=== PATIENT | female | born 1960 | race African-American/Black ===

== ENCOUNTER 2016-10-15 10:53 | Emergency (ER) ==
[2016-10-15 11:04] VITALS: BP 118/88; TEMP 98.5; BMI 40.7
--- NOTE | 2016-10-15 12:27 | ED.PDOC ---
General ED Provider: Dr. YASMINE DOWNEY JR Chief Complaint: Hand Pain/Injury Stated Complaint: states left hand was hurting in june 2016 and was seen in the er. states it improved. patient states she started having pain in left hand and then right hand started hurting also. states both thumb nails are starting to come off. at times knuckles will swell.patient denies any injury, states it just started hurting. bilat. thumb nails are discolored and patient states they are coming off.[End]98.5 72 16 99% 118/88 07/16. . : FELL AND WENT DOWN ONTO LEFT HAND--PAIN TO LEFT THUMB SINCE FALL--SL SWOLLEN WITH PAIN TO ENTIRE THUMB AND RADIATES INTO BASE OF WRIST[. Tenderness : Snuff box, Carpal, Metacarpal, Phalanx (states lower lid htperpigme) Pancreatitis (at 22 years old -told it was due to drinking- no problems since) Alcohol Screening: None (admits to 2 beers and one to two shots of crown a day) : Hand Sprain (ED) limit use of left hand for five daysace wrap for three daysice 20 minutes three times a dayNaprosyn for painrecheck PMD [facility] 500 mg PO Q12HR PRN #30. pain each thumb and left third finger about proximal nail folds and DIP joints Time Seen by Physician: 12:26 Mode of Arrival: Walk-In Information Source: Patient Exam Limitations: No limitations Nursing and Triage Documentation Reviewed and Agree: No Review of Systems - Review Of Systems Constitutional: Reports: No symptoms Eyes: Reports: No symptoms Ears, Nose, Mouth, Throat: Reports: No symptoms Respiratory: Reports: No symptoms Cardiac: Reports: No symptoms GI: Reports: No symptoms : Reports: No symptoms Musculoskeletal: Reports: Other (note fall and does recall striking dorsum of left thumb but both thumbnails with duplication of nail consistent with trauma) Skin: Reports: Lesions Neurological: Reports: No symptoms Endocrine: Reports: No symptoms Hematologic/Lymphatic: Reports: No symptoms All Other Systems: Other Past Medical History - Past Medical History Previously Healthy: Yes Endocrine: Reports: None Cardiovascular: Reports: None Respiratory: Reports: None Hematological: Reports: None Gastrointestinal: Reports: None, Pancreatitis (at 22 years old -told it was due to drinking- no problems since) Genitourinary: Reports: None Neuro/Psych: Reports: None Musculoskeletal: Reports: Joint Pain Cancer: Reports: None Last Menstrual Period: no longer having "it's been years" - Surgical History General Surgical History: Reports: , Unknown - Family History Family History: Reports: Unknown - Social History Smoking Status: Never smoker Hx Substance Use: No Alcohol Screening: None Physical Exam - Physical Exam Appearance: Well-appearing Pain Distress: Moderate Eyes: KRISTY (note hyperpigmentation below eyes) Skin: Warm, Dry, Normal color (note nail changes and tenderness of nailbes and first pip,positive history of trauma to left thumb then to left thumbnail) Neurological: Sensation intact, Motor intact, Reflexes intact, Cranial nerves intact, Alert, Oriented Psychiatric: Affect appropriate, Mood appropriate Critical Care Note - Critical Care Note Total Time (mins): 0 Course - Course Vital Signs: Temp Pulse Resp BP Pulse Ox 10/15/16 10:54 98.5 F 72 16 118/88 99 Departure - Departure Time of Disposition: 12:37 Disposition: HOME SELF-CARE Discharge Problem: Onycholysis, Arthritis Instructions: Nail Avulsion (ED) Condition: Good Pt referred to PMD for follow-up: Yes Additional Instructions: follow up with clinic discuss Rheumatology evaluation for psoriasis lupus or other skin disease affecting nails Naprosyn for pain need specialized blood tests recommend follow up with clinic Prescriptions: Naproxen [Naprosyn] 500 mg PO Q12HR PRN #30 tablet PRN Reason: PAIN Allergies/Adverse Reactions: Allergies No Known Allergies Allergy (Verified 10/15/16 10:58) Home Medications: Ambulatory Orders Naproxen [Naprosyn] 500 mg PO Q12HR PRN #30 tablet 10/15/16
== END 2016-10-15 12:48 | disposition home or self-care (01) ==
LOC: ED 10:53
DX: M19.90 Unspecified osteoarthritis, unspecified site (principal); L60.1 Onycholysis
CPT/HCPCS: 99282

== ENCOUNTER 2016-10-18 16:01 | Outpatient (CLI) ==
[2016-10-18 17:02] LABS: BASOPHILS # (AUTO) 0.1 K/uL (0-0.2); BASOPHILS % (AUTO) 0.5 % (0.0-3.0); EOSINOPHILS # (AUTO) 0.4 K/ul (0.0-0.7); HEMATOCRIT 43.4 % (37.0-47.0); HEMOGLOBIN 14.3 g/dl (12.0-16.0); IMMATURE GRANULOCYTE % (AUTO) 0.3 % (0.0-5.0); LYMPHOCYTES # (AUTO) 1.8 K/uL (0.60-3.4); LYMPHOCYTES % (AUTO) 17.9 (10.0-50.0); MEAN CORPUSCULAR HEMOGLOBIN 25.9 pg (27.0-31.0); MEAN CORPUSCULAR HGB CONC 32.9 (31.8-35.4); MEAN CORPUSCULAR VOLUME 78.6 fl (81.0-99.0); MONOCYTES # (AUTO) 0.6 K/uL (0.4-2.0); MONOCYTES % (AUTO) 6.4 (0-10); NEUTROPHILS # (AUTO) 6.9 K/ul (2.0-6.9); NEUTROPHILS % (AUTO) 70.9; PLATELET COUNT 298 10^3/uL (140-440); RED BLOOD COUNT 5.52 10^6/ul (4.20-5.40); WHITE BLOOD COUNT 9.78 K/ul (4.6-10.2)
[2016-10-18 17:31] LABS: ALBUMIN 3.7 g/dL (3.4-5.0); ALBUMIN/GLOBULIN RATIO 0.86; ANION GAP 11.1; BILIRUBIN,TOTAL 0.62 mg/dL (0.00-1.20); BUN/CREATININE RATIO 12.03; CALCIUM 9.4 mg/dL (8.2-10.2); CREATININE 1.33 mg/dL (0.60-1.30); POTASSIUM 4.1 mmol/L (3.5-5.10)
== END 2016-10-18 16:02 | disposition home or self-care (01) ==
LOC: LAB 16:01
PROVIDERS: ATTEND Nurse Practitioner Family
DX: L60.3 Nail dystrophy (principal)
CPT/HCPCS: 36415; 80053; 84439; 84443; 85025

== ENCOUNTER 2016-11-23 11:44 | Emergency (ER) ==
[2016-11-23 11:53] VITALS: BP 134/77; TEMP 101.8; BMI 41.8
--- NOTE | 2016-11-23 12:17 | ED.PDOC ---
General ED Provider: Dr. SESAR GODINEZ-ER Chief Complaint: Respiratory Complaint Stated Complaint: my sinuses are draining green--its going down my throat and im coughing it up Time Seen by Physician: 11:55 Mode of Arrival: Walk-In Information Source: Patient Exam Limitations: No limitations Primary Care Provider: EVA SALCEDO Nursing and Triage Documentation Reviewed and Agree: Yes Respiratory Complaint Exam - Respiratory Complaint/Exam Onset/Duration: 2 dasy Symptoms Are: Still present Timing: Constant Initial Severity: Mild Current Severity: Mild Location: Nose Character: Reports: Productive cough Aggravating: Reports: URI Alleviating: Reports: None Associated Signs and Symptoms: Reports: URI, Nasal congestion, Sinus discomfort , Sore throat. Denies: Rapid breathing, Dyspnea, Fever, Chills, Chest pain, Pleuritic chest pain, Wheezing, Hemoptysis, Dizziness, Calf pain, Calf swelling , Edema, Hoarseness, Vomiting, Weight loss, Decreased oral intake, Increased thirst, Increased appetite, Increased urination Related History: Reports: Similar episode History of Healthcare-Acquired Pneumonia: No Related Surgical History: Reports: None Pulmonary Embolism Risk Factors: None Cardiac Risk Factors: Reports: None Pseudomonas Risk Factors: Reports: None Tuberculosis Risk Factors: Reports: None Status Asthmaticus Risk Factors: Reports: None Home Oxygen Use: No Recent Stress Test: No Recent Echo/LV Function: No Current Antibiotic Use: No Current Asthma Medication Use: No Respiratory Distress: None Inadequate Respiratory Effort: No Dysphagia Present: No Stridor Present: No JVD Present: No Accessory Muscle Use: No Retractions: Not Present Diminished Breath Sounds: No Sinus Tenderness: Maxillary Grunting Respirations: No Kussmaul Respirations: No Differential Diagnoses: Sinusitis Review of Systems - Review Of Systems Constitutional: Reports: Fever Eyes: Reports: No symptoms Ears, Nose, Mouth, Throat: Reports: Nose discharge Respiratory: Reports: No symptoms Cardiac: Reports: No symptoms GI: Reports: No symptoms : Reports: No symptoms Musculoskeletal: Reports: No symptoms Skin: Reports: No symptoms Neurological: Reports: No symptoms Endocrine: Reports: No symptoms Hematologic/Lymphatic: Reports: No symptoms All Other Systems: Reviewed and Negative Past Medical History - Past Medical History Previously Healthy: Yes Endocrine: Reports: None Cardiovascular: Reports: None Respiratory: Reports: None Hematological: Reports: None Gastrointestinal: Reports: None, Pancreatitis (at 22 years old -told it was due to drinking- no problems since) Genitourinary: Reports: None Neuro/Psych: Reports: None Musculoskeletal: Reports: Joint Pain Cancer: Reports: None Last Menstrual Period: years states post menopausal - Surgical History General Surgical History: Reports: , Unknown - Family History Family History: Reports: Unknown - Social History Smoking Status: Never smoker Hx Substance Use: No Alcohol Screening: None Lives: With family Physical Exam - Physical Exam Appearance: Well-appearing, No pain distress, Well-nourished Eyes: KRISTY, EOMI, Conjunctiva clear ENT: Ears normal Neck: Supple Respiratory: Airway patent, Breath sounds clear, Breath sounds equal, Respirations nonlabored Cardiovascular: RRR, Pulses normal, No rub, No murmur GI/: Soft, Nontender, No masses, Bowel sounds normal, No Organomegaly, Hepatomegaly Musculoskeletal: Normal strength, ROM intact, No edema, No calf tenderness Skin: Warm, Dry, Normal color Neurological: Sensation intact Psychiatric: Affect appropriate, Mood appropriate Critical Care Note - Critical Care Note Total Time (mins): 0 Course - Course Orders, Labs, Meds: Lab Review 11/23/16 12:22 Influenza A (Rapid) Negative Influenza B (Rapid) Negative Orders Category Date Time Status RAPID FLU A/B Stat LAB 11/23/16 12:22 Completed STREP SCREEN Stat LAB 11/23/16 12:22 Received Vital Signs: Temp Pulse Resp BP Pulse Ox 11/23/16 11:50 101.8 F H 115 H 24 134/77 100 Departure - Departure Time of Disposition: 12:17 Disposition: HOME SELF-CARE Discharge Problem: Sinusitis Qualifiers: Sinusitis location: unspecified location Chronicity: unspecified Qualifier Code : (J32.9) Chronic sinusitis, unspecified Instructions: Sinusitis (ED) Condition: Good Pt referred to PMD for follow-up: Yes Additional Instructions: augmentin 875mg bid x 10 days==flonase nasal spray one puff each nostril bid -- recfheck in 72hrs prn pain Allergies/Adverse Reactions: Allergies No Known Allergies Allergy (Verified 11/23/16 11:55) Home Medications: Ambulatory Orders 1 [No Reported Medications] 11/23/16 Disposition Discussed With: Patient
[2016-11-23 12:48] LABS: FLU INTERNAL QC INTERNAL QC VALID; RAPID FLU A NEGATIVE (NEGATIVE); RAPID FLU B NEGATIVE (NEGATIVE)
== END 2016-11-23 13:01 | disposition home or self-care (01) ==
LOC: ED 11:44
DX: J32.9 Chronic sinusitis, unspecified (principal)
CPT/HCPCS: 87651; 87804; 87880; 99283

== ENCOUNTER 2016-11-28 12:18 | Outpatient (CLI) ==
[2016-11-28 12:55] LABS: ALBUMIN 2.4 g/dL (3.4-5.0); BILIRUBIN,DIRECT 0.32 mg/dL (0.00-0.30); BILIRUBIN,TOTAL 0.77 mg/dL (0.00-1.20); TOTAL PROTEIN 7.6 g/dL (6.4-8.2)
== END 2016-11-28 12:19 | disposition home or self-care (01) ==
LOC: LAB 12:18
PROVIDERS: ATTEND Dermatology
DX: Z79.899 Other long term (current) drug therapy (principal)
CPT/HCPCS: 36415; 80076

== ENCOUNTER 2016-12-13 07:14 | Outpatient (CLI) ==
[2016-12-13 07:58] LABS: ALBUMIN 2.8 g/dL (3.4-5.0); ALBUMIN/GLOBULIN RATIO 0.6; ANION GAP 12.5; BILIRUBIN,TOTAL 0.39 mg/dL (0.00-1.20); BUN/CREATININE RATIO 5.93; CALCIUM 9.5 mg/dL (8.2-10.2); CREATININE 1.18 mg/dL (0.60-1.30); POTASSIUM 3.5 mmol/L (3.5-5.10); TOTAL PROTEIN 7.5 g/dL (6.4-8.2)
--- NOTE | 2016-12-13 08:29 | US ---
Examination: Limited arzate-scale and color Doppler ultrasonographic evaluation of the right upper qu adrant. Reason for study: Alcohol dependence. Comparison: None available. FINDINGS: The liver is mildly prominent in size measuring 16.10 cm in length and 12.30 cm in the AP dimension. There is normal appearing echotexture with normal portal venous blood flow. No obvious intrahepat ic ductal dilatation or parenchymal lesion. There is no perihepatic free fluid. The gallbladder is unremarkable in appearance. The gallbladder wall measures 0.23 cm in diameter. No obvious intraluminal sludge, stone, or polyp. The common bile duct is within normal limits measuring 0.4 cm in diameter without intraluminal stone or polyp. The partially imaged pancreas is unremarkable without obvious ductal dilatation. Impression: The liver appears mildly prominent in size. Otherwise, no acute findings on the limite d ultrasonographic evaluation.
== END 2016-12-13 07:15 | disposition home or self-care (01) ==
LOC: RAD 07:14
PROVIDERS: ATTEND Emergency Medicine
DX: F10.20 Alcohol dependence, uncomplicated (principal); R74.8 Abnormal levels of other serum enzymes
CPT/HCPCS: 36415; 80053

== ENCOUNTER 2016-12-18 09:18 | Outpatient (CLI) | END 2016-12-18 09:19 | disposition home or self-care (01) | LOC: LAB 09:18 | PROVIDERS: ATTEND Nurse Practitioner Family | DX: R16.0 Hepatomegaly, not elsewhere classified (principal) | CPT/HCPCS: 36415; 80074 ==

== ENCOUNTER 2017-01-09 11:27 | Outpatient (CLI) ==
[2017-01-09 12:50] LABS: BASOPHILS # (AUTO) 0.1 K/uL (0-0.2); BASOPHILS % (AUTO) 0.3 % (0.0-3.0); HEMATOCRIT 33.7 % (37.0-47.0); HEMOGLOBIN 11.4 g/dl (12.0-16.0); IMMATURE GRANULOCYTE % (AUTO) 1.3 % (0.0-5.0); LYMPHOCYTES # (AUTO) 1.1 K/uL (0.60-3.4); LYMPHOCYTES % (AUTO) 2.6 (10.0-50.0); MEAN CORPUSCULAR HEMOGLOBIN 25.4 pg (27.0-31.0); MEAN CORPUSCULAR HGB CONC 33.8 (31.8-35.4); MEAN CORPUSCULAR VOLUME 75.1 fl (81.0-99.0); MONOCYTES # (AUTO) 2.4 K/uL (0.4-2.0); MONOCYTES % (AUTO) 5.9 (0-10); NEUTROPHILS # (AUTO) 36.7 K/ul (2.0-6.9); NEUTROPHILS % (AUTO) 89.9; PLATELET COUNT 407 10^3/uL (140-440); RED BLOOD COUNT 4.49 10^6/ul (4.20-5.40)
[2017-01-09 13:07] LABS: WHITE BLOOD COUNT 40.82 K/ul (4.6-10.2)
[2017-01-09 13:26] LABS: ALBUMIN/GLOBULIN RATIO 0.48; ANION GAP 18.4; BILIRUBIN,TOTAL 1.78 mg/dL (0.00-1.20); BUN/CREATININE RATIO 5.41; CALCIUM 10.4 mg/dL (8.2-10.2); CREATININE 2.03 mg/dL (0.60-1.30); POTASSIUM 3.4 mmol/L (3.5-5.10); TOTAL PROTEIN 9.2 g/dL (6.4-8.2)
[2017-01-09 14:56] VITALS: BMI 37.3
[2017-01-09 14:58] LABS: FLU INTERNAL QC INTERNAL QC VALID; RAPID FLU A NEGATIVE (NEGATIVE); RAPID FLU B NEGATIVE (NEGATIVE)
== END 2017-01-09 11:28 | disposition home or self-care (01) ==
LOC: LAB 11:27
PROVIDERS: ATTEND Emergency Medicine
DX: R68.89 Other general symptoms and signs (principal); K52.9 Noninfective gastroenteritis and colitis, unspecified
CPT/HCPCS: 36415; 80053; 85025; 87804

== ENCOUNTER 2017-01-09 14:25 | Inpatient (IN) ==
[2017-01-09 14:56] VITALS: BMI 37.3
[2017-01-09] MEDS ORDERED: VISTARIL INJ IM PRN (14:59)
[2017-01-09] MEDS ORDERED: ATROPINE SULFATE PFS IVP PRN (14:59)
[2017-01-09] MEDS ORDERED: MORPHINE 4 MG/ML SYRINGE IVP PRN (14:59)
[2017-01-09] MEDS ORDERED: NITROSTAT SL PRN (14:59)
[2017-01-09] MEDS ORDERED: ZOFRAN TAB PO PRN (15:04)
[2017-01-09] MEDS ORDERED: LIBRIUM PO PRN (15:09)
[2017-01-09 15:36] LABS: CREATINE KINASE 86 U/L; MYOGLOBIN 163 ng/ml
[2017-01-09] MEDS: TYLENOL PO PRN (15:56)
[2017-01-09 16:11] LABS: BILIRUBIN,URINE 3+ (NEGATIVE); KETONES,URINE 1+ (NEGATIVE); LEUKOCYTE ESTERASE ,URINE 1+ (NEGATIVE); NITRITE,URINE Negative (NEGATIVE); PROTEIN,URINE 3+ (NEGATIVE); URINE, BLOOD 2+ (NEGATIVE)
[2017-01-09 16:14] LABS: ADD URINE MICROSCOPIC YES
[2017-01-09 16:22] LABS: COCAIN SCREEN,URINE NEGATIVE (NEGATIVE)
[2017-01-09] MEDS ORDERED: ZOFRAN 4 MG/2 ML IVP PRN (16:27)
[2017-01-09] MEDS: FOLIC ACID 1 MG, THIAMINE 100 MG, INFUVITE ADULT 10 ML in SODIUM CHLORIDE 0.9%-KCL 20 M... IV SCH (16:28)
[2017-01-09] MEDS ORDERED: ATIVAN IVP PRN (16:28)
[2017-01-09] MEDS: FLAGYL 500 MG/100 ML 500 MG in PREMIX 100 ML NS 1 BAG IV SCH ×2 (16:28→21:17)
--- NOTE | 2017-01-09 16:52 | DI ---
EXAM: Single frontal view of the chest HISTORY: Chest pain. COMPARISON: None FINDINGS: Cardiomediastinal silhouette is normal. There is no pneumothorax or pleural effusion. Th ere is no consolidation, nodule or mass. The osseous structures are unremarkable. IMPRESSION: No acute cardiopulmonary process.
--- NOTE | 2017-01-09 17:03 | CT ---
EXAM: CT abdomen pelvis without contrast HISTORY: Right lower quadrant pain with nausea, vomiting and fever for 4 days COMPARISON: Abdominal ultrasound 12/13/2016 TECHNIQUE: Serial axial images of the abdomen pelvis were performed from the lung bases through the inferior pelvis without contrast. These were viewed in multiple planes. FINDINGS: The lung bases are clear. Evaluation is limited due to lack of contrast. The liver is unremarkable. Gallbladder is distended with no visualized stones. The spleen is unremarkable. The adrenal glands are unremarkable. The left kidney is normal. There is inflammatory stranding surrounding what appears to be a right pelvi c kidney. The urinary bladder is nondistended. There is no visualized stone or hydronephrosis. Stomach is nondistended. The small bowel in the abdomen pelvis is unremarkable. The colon demonstr ates no acute abnormality. The appendix is normal. The uterus is normal. The osseous structures a re normal. IMPRESSION: 1. There is inflammatory stranding and edematous appearance of a right pelvic kidney suggestive of pyelonephritis. No obstructive stone or hydronephrosis is identified. Evaluation is limited due to lack of contrast. 2. No additional intra-abdominal or pelvic process.
[2017-01-09] MEDS: ZANTAC PO SCH (17:10)
[2017-01-09] MEDS: PROTONIX IV IVP SCH ×2 (17:10→21:17)
[2017-01-09 23:54] LABS: CREATINE KINASE 204 U/L; MYOGLOBIN 328 ng/ml
[2017-01-09 23:56] LABS: CREATINE KINASE MB 0.5 ng/ml (0.0-3.6)
[2017-01-10 05:32] LABS: HEMOGLOBIN 10.2 g/dl (12.0-16.0); MEAN CORPUSCULAR HEMOGLOBIN 25.1 pg (27.0-31.0); MEAN CORPUSCULAR VOLUME 73.7 fl (81.0-99.0); PLATELET COUNT 355 10^3/uL (140-440); RED BLOOD COUNT 4.07 10^6/ul (4.20-5.40)
[2017-01-10 05:34] LABS: ALBUMIN 2.8 g/dL (3.4-5.0); ALBUMIN/GLOBULIN RATIO 0.52; ANION GAP 15.9; BILIRUBIN,TOTAL 1.37 mg/dL (0.00-1.20); BUN/CREATININE RATIO 7.44; CALCIUM 9.9 mg/dL (8.2-10.2); CREATININE 2.15 mg/dL (0.60-1.30); POTASSIUM 3.9 mmol/L (3.5-5.10); TOTAL PROTEIN 8.2 g/dL (6.4-8.2)
[2017-01-10] MEDS: FLAGYL 500 MG/100 ML 500 MG in PREMIX 100 ML NS 1 BAG IV SCH (05:39)
[2017-01-10] MEDS: ZANTAC PO SCH ×2 (05:39→17:35)
[2017-01-10 06:30] LABS: ANISOCYTOSIS 1+ (NOT PRESENT); HYPOCHROMASIA 1+ (NOT PRESENT); MICROCYTOSIS 1+ (NOT PRESENT)
[2017-01-10] MEDS ORDERED: PRIMAXIN IV SCH (09:00)
[2017-01-10] MEDS ORDERED: SODIUM CHLORIDE IV SCH (09:00)
[2017-01-10] MEDS: ASPIRIN EC PO SCH (09:10)
[2017-01-10] MEDS: PROTONIX IV IVP SCH ×2 (09:17→20:27)
[2017-01-10] MEDS: PRIMAXIN 500 MG in SODIUM CHLORIDE 100 ML IV SCH ×3 (10:15→20:27)
--- NOTE | 2017-01-10 10:17 | PCM.PROG ---
Attending Provider: ATTENDING PROVIDER[facility] DATE OF SERVICE: 01/10/17 SUBJECTIVE: This 56 year old BLACK/ F was hospitalized 01/09/17. The patient is admitted from the office yesterday with gastroenteritis and dehydration. The patient has an elevated white count of 40,000. Evaluation showed pateint has a uti with peylneonritis on right side per ct scan. as of now still having diarrhea so far 6 times today nausea and vomiting better. no fever since admission. has been having diarrhea 6 to 7 times this a.m. REVIEW OF SYSTEMS: CONSTITUTIONAL: No fever, no chills. ENDOCRINE: No weight loss or weight gain. HEENT: No sinus drainage, no sore throat. CVS: No angina symptoms. No CHF symptoms. No palpitations. No atypical chest pain for CAD. No shortness of breath. RESPIRATORY: No cough, no hemoptysis. GI: Diarrhea. No melena. No abdominal pain. No nausea, no vomiting. : No hematuria. No polyuria. SKIN: No rash. No wounds. MUSCULOSKELETAL: No pain. AEROLOGIST: No blackout, no dizziness. No headache. No double vision. PSYCHIATRIC: Not anxious; no depression. No suicidal thoughts. No homicidal thoughts. PHYSICAL EXAMINATION: GENERAL: Sitting in the chair in no distress. VITAL SIGNS: Temperature 97.4 F, Pulse 98, Respiratory Rate 20, BP 94/60, Pulse Ox 99% HEENT: Normocephalic, atraumatic. Mucosa is dry, pallor positive. NECK: No JVP, no carotid bruit. No lymphadenopathy. CARDIAC: S1, S2, no S3. No murmur, gallop or regurgitation. LUNGS: Clear to auscultation. ABDOMEN: Right-sided CVA tenderness. Abdomen nontender. Bowel sounds active. No rigidity, guarding. EXTREMITIES: No clubbing, cyanosis or edema. NEUROLOGIC: Awake, alert and oriented x3. LYMPHATIC: No palpable lymph nodes SKIN: Not dry. Intact. MUSCULOSKELETAL: No joint swelling. LAB REVIEW: 01/10/17 04:55 01/10/17 04:55 01/10/17 04:55: WBC 31.40 H D, RBC 4.07 L, Hgb 10.2 L, Hct 30.0 L, MCV 73.7 L, MCH 25.1 L, MCHC 34.0, RDW Coeff of Antonio 15.9 H, Plt Count 355, Neutrophils % ( Manual) 78.0 H, Band Neutrophils % 6.0 H, Lymphocytes % (Manual) 9.0 L, Monocytes % (Manual) 7.0, Microcytosis 1+, Sodium 135 L, Potassium 3.9, Chloride 103, Carbon Dioxide 20 L, Anion Gap 15.9, BUN 16, Creatinine 2.15 H, Estimated GFR (MDRD) 29.00, BUN/Creatinine Ratio 7.44, Glucose 105, Calcium 9.9 , Total Bilirubin 1.37 H, AST 27, ALT 18, Alkaline Phosphatase 139 H, Total Protein 8.2, Albumin 2.8 L, Globulin 5.4, Albumin/Globulin Ratio 0.52 01/09/17 22:50: Total Creatine Kinase 204, CK-MB (CK-2) 0.5, CK-MB (CK-2) % 0.16506, Myoglobin 328, Troponin I < 0.0100 01/09/17 16:20: Lactic Acid 14.7, Procalcitonin 8.66 01/09/17 16:00: Urine Color Dark, Urine Clarity Cloudy, Urine pH 5.0, Ur Specific [place] >=1.030, Urine Protein 3+, Urine Glucose (UA) Negative, Urine Ketones 1+, Urine Blood 2+, Urine Nitrite Negative, Urine Bilirubin 3+, Urine Urobilinogen 1.0, Ur Leukocyte Esterase 1+, Urine Microscopic WBC Tntc, Ur Squamous Epith Cells Not present, Urine Opiates Screen Negative, Ur Oxycodone Screen Negative, Urine Methadone Screen Negative, Ur Propoxyphene Screen Negative, Ur Barbiturates Screen Negative, U Tricyclic Antidepress Negative, Ur Phencyclidine Scrn Negative, Ur Amphetamine Screen Negative, U Methamphetamines Scrn Negative, U Benzodiazepines Scrn Negative, Urine Cocaine Screen Negative, U Cannabinoids Screen Positive 01/09/17 10:25: Total Creatine Kinase 86, Myoglobin 163, Troponin I < 0.0100 ASSESSMENT: 1. Right-sided pyelonephritis 2. Leukocytosis 3. Dehydration 4. Anemia rule out GI bleed 5. Alcohol dependence 6. Acute renal failure PLAN: 1. Change to Primaxin 1 gm b.i.d. 2. Stop Flagyl 3. Continue IV fluids 4. Clear liquid diet 5. Morphine p.r.n. 6. Stool for occult blood test Plan and coordination of the patient's care discussed in the presence of Mcat Instructor and nurse. CONDITION: Stable SCRIBED BY: SHEKHAR YOUNG Graphics Programmer scribed while in presence of service performed by Dr. BRIANDA UREÑA[facility] on 01/10/17 ([id number])
[2017-01-10] MEDS: FOLIC ACID 1 MG, THIAMINE 100 MG, INFUVITE ADULT 10 ML in SODIUM CHLORIDE 0.9%-KCL 20 M... IV SCH (11:24)
[2017-01-10] MEDS: TYLENOL PO PRN (22:26)
[2017-01-11] MEDS ORDERED: FOLIC ACID ONE ×2 (02:33→18:23)
[2017-01-11] MEDS ORDERED: THIAMINE ONE ×2 (02:33→18:23)
[2017-01-11] MEDS ORDERED: INFUVITE ADULT IV ONE ×2 (02:33→18:23)
[2017-01-11] MEDS: FOLIC ACID 1 MG, THIAMINE 100 MG, INFUVITE ADULT 10 ML in SODIUM CHLORIDE 0.9%-KCL 20 M... IV SCH ×2 (02:39→18:29)
[2017-01-11] MEDS: PRIMAXIN 500 MG in SODIUM CHLORIDE 100 ML IV SCH ×3 (04:37→20:32)
[2017-01-11] MEDS: ZANTAC PO SCH ×2 (05:53→17:25)
[2017-01-11 06:22] LABS: BASOPHILS # (AUTO) 0.1 K/uL (0-0.2); BASOPHILS % (AUTO) 0.3 % (0.0-3.0); EOSINOPHILS # (AUTO) 0.2 K/ul (0.0-0.7); EOSINOPHILS % (AUTO) 0.9 % (0.0-7.0); HEMATOCRIT 29.2 % (37.0-47.0); HEMOGLOBIN 9.6 g/dl (12.0-16.0); IMMATURE GRANULOCYTE % (AUTO) 0.9 % (0.0-5.0); LYMPHOCYTES # (AUTO) 1.4 K/uL (0.60-3.4); LYMPHOCYTES % (AUTO) 8.1 (10.0-50.0); MEAN CORPUSCULAR HEMOGLOBIN 24.9 pg (27.0-31.0); MEAN CORPUSCULAR HGB CONC 32.9 (31.8-35.4); MEAN CORPUSCULAR VOLUME 75.6 fl (81.0-99.0); MONOCYTES # (AUTO) 1.3 K/uL (0.4-2.0); MONOCYTES % (AUTO) 7.4 (0-10); NEUTROPHILS # (AUTO) 13.9 K/ul (2.0-6.9); NEUTROPHILS % (AUTO) 82.4; PLATELET COUNT 343 10^3/uL (140-440); RED BLOOD COUNT 3.86 10^6/ul (4.20-5.40); WHITE BLOOD COUNT 16.81 K/ul (4.6-10.2)
[2017-01-11 06:36] LABS: ALBUMIN 2.4 g/dL (3.4-5.0); ALBUMIN/GLOBULIN RATIO 0.48; ANION GAP 15.2; BILIRUBIN,TOTAL 0.51 mg/dL (0.00-1.20); BUN/CREATININE RATIO 8.6; CALCIUM 9.6 mg/dL (8.2-10.2); CREATININE 1.51 mg/dL (0.60-1.30); POTASSIUM 4.2 mmol/L (3.5-5.10); TOTAL PROTEIN 7.4 g/dL (6.4-8.2)
[2017-01-11] MEDS: PROTONIX IV IVP SCH ×2 (08:41→22:00)
[2017-01-11 09:27] LABS: OCCULT BLOOD INTERNAL QC 1 INTERNAL QC VALID; OCCULT BLOOD SAMPLE 1 NEGATIVE (NEGATIVE)
[2017-01-11] MEDS: ASPIRIN EC PO SCH (10:44)
--- NOTE | 2017-01-11 11:52 | PCM.PROG ---
Attending Provider: ATTENDING PROVIDER: Dr. BRIANDA UREÑA DATE OF SERVICE: 01/11/17 SUBJECTIVE: This 56 year old BLACK/ F was hospitalized 01/09/17. The patient was able to tolerate soft diet yesterday. Discussed with the patient that her hemoglobin is dropping. She continues to have diarrhea. No tremors are seen. No palpitations. REVIEW OF SYSTEMS: CONSTITUTIONAL: No fever, no chills. ENDOCRINE: No weight loss or weight gain. HEENT: No sinus drainage, no sore throat. CVS: No angina symptoms. No CHF symptoms. No palpitations. No atypical chest pain for CAD. No shortness of breath. RESPIRATORY: No cough, no hemoptysis. GI: No melena. No abdominal pain. No nausea, no vomiting. : No hematuria. No polyuria. SKIN: No rash. No wounds. MUSCULOSKELETAL: No pain. INSPECTING ENGINEER: No blackout, no dizziness. No headache. No double vision. PSYCHIATRIC: Not anxious; no depression. No suicidal thoughts. No homicidal thoughts. PHYSICAL EXAMINATION: GENERAL: Lying in bed in no distress. VITAL SIGNS: Temperature 98.1 F, Pulse 76, Respiratory Rate 16, BP 118/74, Pulse Ox 94% HEENT: Normocephalic, atraumatic. Mucosa is dry, pallor positive. NECK: No JVP, no carotid bruit. No lymphadenopathy. CARDIAC: S1, S2, no S3. No murmur, gallop or regurgitation. LUNGS: Clear to auscultation. ABDOMEN: Soft, non-tender. Bowel sounds active. No rigidity, guarding or CVA tenderness. EXTREMITIES: No clubbing, cyanosis or edema. NEUROLOGIC: Awake, alert and oriented x3. No confabulation or confusion. LYMPHATIC: No palpable lymph nodes SKIN: Not dry. Intact. MUSCULOSKELETAL: No joint swelling. LAB REVIEW: 01/11/17 06:00 01/11/17 06:00 01/11/17 06:00: WBC 16.81 H D, RBC 3.86 L, Hgb 9.6 L, Hct 29.2 L, MCV 75.6 L, MCH 24.9 L, MCHC 32.9, RDW Coeff of Antonio 16.4 H, Plt Count 343, Immature Gran % ( Auto) 0.9, Neut % (Auto) 82.4, Lymph % (Auto) 8.1 L, Sharkey % (Auto) 7.4, Eos % ( Auto) 0.9, Baso % (Auto) 0.3, Immature Gran # (Auto) 0.2, Neut # 13.9 H, Lymph # 1.4, Sharkey # 1.3, Eos # 0.2, Baso # 0.1, Sodium 139, Potassium 4.2, Chloride 108 H, Carbon Dioxide 20 L, Anion Gap 15.2, BUN 13, Creatinine 1.51 H D, Estimated GFR (MDRD) 44.00, BUN/Creatinine Ratio 8.60, Glucose 93, Calcium 9.6, Total Bilirubin 0.51, AST 24, ALT 15, Alkaline Phosphatase 90 D, Total Protein 7.4, Albumin 2.4 L, Globulin 5.0, Albumin/Globulin Ratio 0.48 ASSESSMENT: 1. Right-sided pyelonephritis 2. Leukocytosis 3. Dehydration 4. Anemia, rule out GI bleed 5. Alcohol dependence 6. Acute renal failure PLAN: 1. Will advance diet as tolerated 2. Protonix 40 mg b.i.d. 3. Stool for occult blood 4. Anemia profile 5. GI referral as an outpatient 6. Liver ultrasound Plan and coordination of the patient's care discussed in the presence of Audiology Doctor and nurse. CONDITION: Stable SCRIBED BY: SHEKHAR YOUNG Examiner Rating Clerk scribed while in presence of service performed by Dr. BRIANDA UREÑA on 01/11/17 ([id number])
[2017-01-12] MEDS: PRIMAXIN 500 MG in SODIUM CHLORIDE 100 ML IV SCH (04:07)
[2017-01-12] MEDS: ZANTAC PO SCH (05:35)
[2017-01-12 05:41] VITALS: BP 102/57; TEMP 97.6
[2017-01-12 07:04] LABS: BASOPHILS # (AUTO) 0.1 K/uL (0-0.2); BASOPHILS % (AUTO) 0.6 % (0.0-3.0); EOSINOPHILS # (AUTO) 0.2 K/ul (0.0-0.7); EOSINOPHILS % (AUTO) 1.5 % (0.0-7.0); HEMATOCRIT 32.5 % (37.0-47.0); HEMOGLOBIN 10.6 g/dl (12.0-16.0); IMMATURE GRANULOCYTE % (AUTO) 1.2 % (0.0-5.0); LYMPHOCYTES # (AUTO) 1.4 K/uL (0.60-3.4); LYMPHOCYTES % (AUTO) 11.5 (10.0-50.0); MEAN CORPUSCULAR HEMOGLOBIN 24.7 pg (27.0-31.0); MEAN CORPUSCULAR HGB CONC 32.6 (31.8-35.4); MEAN CORPUSCULAR VOLUME 75.8 fl (81.0-99.0); MONOCYTES # (AUTO) 1.2 K/uL (0.4-2.0); MONOCYTES % (AUTO) 9.7 (0-10); NEUTROPHILS # (AUTO) 9.2 K/ul (2.0-6.9); NEUTROPHILS % (AUTO) 75.5; PLATELET COUNT 408 10^3/uL (140-440); RED BLOOD COUNT 4.29 10^6/ul (4.20-5.40); WHITE BLOOD COUNT 12.19 K/ul (4.6-10.2)
[2017-01-12 07:25] LABS: ALBUMIN 2.6 g/dL (3.4-5.0); ALBUMIN/GLOBULIN RATIO 0.52; ANION GAP 14.1; BILIRUBIN,TOTAL 0.39 mg/dL (0.00-1.20); BUN/CREATININE RATIO 8.66; CALCIUM 9.8 mg/dL (8.2-10.2); CREATININE 1.27 mg/dL (0.60-1.30); POTASSIUM 4.1 mmol/L (3.5-5.10); TOTAL PROTEIN 7.6 g/dL (6.4-8.2)
[2017-01-13 11:44] LABS: OCCULT BLOOD SAMPLE 2 NO SPECIMEN RECEIVED (NEGATIVE)
[2017-01-13 11:45] LABS: OCCULT BLOOD INTERNAL QC 2 INTERNAL QC VALID; OCCULT BLOOD INTERNAL QC 3 INTERNAL QC VALID; OCCULT BLOOD SAMPLE 3 NO SPECIMEN RECEIVED (NEGATIVE)
--- NOTE | 2017-01-16 13:19 | PN ---
DATE OF SERVICE: 01/12/17 SUBJECTIVE: No diarrhea and vomiting and was able to tolerate the food well. No fever or chills and feeling better. The patient is on regular diet. REVIEW OF SYSTEMS: CONSTITUTIONAL: No fever, no chills. HEENT: Normal. ENDOCRINE: No weight gain, no weight loss. CVS: No angina symptoms. No CHF symptoms. No palpitations. No atypical chest pain for CAD. No shortness of breath. No PND, no orthopnea. RESPIRATORY: No cough, no hemoptysis. GI: No nausea, no vomiting. No abdominal pain. : No hematuria. No polyuria. MUSCULOSKELETAL:. No joint swelling. PSYCHIATRIC: Not anxious. No depression. No suicidal thoughts. No homicidal thoughts. SKIN: Intact. No rash. PHYSICAL EXAMINATION: V/S: Blood pressure 102/57, respiratory rate 18, heart rate 63 and temperature 97.6. HEENT: Normocephalic, atraumatic. Mucosa dry. Pallor positive. No icterus. NECK: Supple. No JVD, no carotid bruit. No lymphadenopathy. LUNGS: Clear to auscultation. No rales or rhonchi. HEART: S1, S2 normal. No S3. No murmur, gallop or regurgitation. ABDOMEN: Soft, nontender. Bowel sounds active. No rigidity. No rebound or guarding. No CVA tenderness. EXTREMITIES: No clubbing, cyanosis or pedal edema. MUSCULOSKELETAL: No joint swelling. NEUROLOGIC: Awake, alert, oriented times three. No focal deficit. LYMPHATIC: No lymph nodes palpable. SKIN: Intact. LABS: Sodium 139, potassium 4.2, chloride 108, bicarb 20, BUN 13, creatinine 1.51, WBC 16.81, hgb 9.6, hct 29.6 and plt count 343. ASSESSMENT: 1. Acute gastroenteritis 2. Elevated leukocytosis secondary to the gastroenteritis 3. Anemia, rule out GI bleed 4. Questionable GERD 5. Peptic Ulcer disease 6. Renal failure PLAN: 1. Discharge the patient home 2. Flagyl 500mg Q 8 hours for seven days 3. Increase the regular diet 4. Activity as tolerated Will follow the patient in daily rounds. If the patient tolerated the diet the patient can go home and we will seen in the [facility] within 5-7 days. TIME SPENT: More than 30 minutes MTDD
--- NOTE | 2017-02-21 14:50 | DS ---
DATE OF SERVICE: 01/12/17 FINAL DIAGNOSIS: 1. ACUTE GASTROENTERITIS 2. ELEVATED LEUKOCYTOSIS SECONDARY TO DEHYDRATION AND GASTROENTERITIS 3. ANEMIA SECONDARY TO CHRONIC DISEASE 4. GERD 5. PEPTIC ULCER DISEASE 6. RENAL FAILURE WHICH HAS IMPROVED MOSTLY THE RENAL FAILURE WAS FROM THE DEHYDRATION 7. HISTORY OF ALCOHOL USE 8. URINARY TRACT INFECTION DISCHARGE INSTRUCTIONS: Discharge the patient home; followup at the [facility] within 5 to 7 days. Increase hydration. MEDICATIONS AT DISCHARGE: 1. Metronidazole 500 mg p.o. t.i.d. 2. NEW PRESCRIPTIONS: 1. Zantac 150 mg p.o. twice a day before meals 2. Metronidazole 500 mg p.o. t.i.d. DIET INSTRUCTIONS: Regular ACTIVITY: As much as tolerated SMOKING: N/A DISEASE SPECIFIC EDUCATION: Dehydration, kidney failure and alcohol use discussed with the patient on multiple occasions. HOSPITAL COURSE: This is a 56-year-old female who came to [facility] with diarrhea, nausea, vomiting, not able to feel better and abdominal discomfort. The patient's white count was 31,[address] of the abdomen and pelvis showed inflammatory stranding, questionable pyelonephritis. Leukocyte esterase was positive. With the given antibiotic regimen, the patient was feeling better. With IV fluids creatinine levels were becoming normal. Primaxin was given for the urinary tract infection. Nausea and vomiting has improved. The patient is up and about walking, tolerated the diet. Did not have any complications. At that time, the patient was discharged home. TIME SPENT: More than 55 minutes today. MTDD
== END 2017-01-12 07:40 | disposition home or self-care (01) | DRG 392 ==
LOC: MEDSURG B 14:25
PROVIDERS: ADMIT Emergency Medicine; ATTEND Emergency Medicine
DX: K52.9 Noninfective gastroenteritis and colitis, unspecified (principal); N17.9 Acute kidney failure, unspecified; N39.0 Urinary tract infection, site not specified; N10 Acute pyelonephritis; D72.829 Elevated white blood cell count, unspecified; E86.0 Dehydration; D64.9 Anemia, unspecified; K21.9 Gastro-esophageal reflux disease without esophagitis; K27.9 Peptic ulcer, site unspecified, unspecified as acute or chronic, without hemorrhage or perforation; F10.21 Alcohol dependence, in remission; R68.89 Other general symptoms and signs
CPT/HCPCS: 36415; 80053; 80306; 81001; 82272; 82550; 82553; 83605; 83874; 84145; 84484; 85007; 85025; 87040; 87070; 87086; 87186; 87804; 93005; 93010; 99223; 99233; 99239

== ENCOUNTER 2017-04-02 12:35 | Outpatient (CLI) ==
[2017-04-02 13:41] LABS: BASOPHILS % (AUTO) 0.5 % (0.0-3.0); EOSINOPHILS # (AUTO) 0.2 K/ul (0.0-0.7); EOSINOPHILS % (AUTO) 2.9 % (0.0-7.0); HEMATOCRIT 39.2 % (37.0-47.0); HEMOGLOBIN 12.9 g/dl (12.0-16.0); IMMATURE GRANULOCYTE % (AUTO) 0.4 % (0.0-5.0); IMMATURE RETIC FRACTION 10.6; LYMPHOCYTES # (AUTO) 1.5 K/uL (0.60-3.4); MEAN CORPUSCULAR HEMOGLOBIN 24.9 pg (27.0-31.0); MEAN CORPUSCULAR HGB CONC 32.9 (31.8-35.4); MEAN CORPUSCULAR VOLUME 75.7 fl (81.0-99.0); MONOCYTES # (AUTO) 0.4 K/uL (0.4-2.0); MONOCYTES % (AUTO) 6.4 (0-10); NEUTROPHILS # (AUTO) 3.5 K/ul (2.0-6.9); NEUTROPHILS % (AUTO) 62.8; PLATELET COUNT 308 10^3/uL (140-440); RED BLOOD COUNT 5.18 10^6/ul (4.20-5.40); RETICULOCYTE % 1.31 %; WHITE BLOOD COUNT 5.59 K/ul (4.6-10.2)
[2017-04-02 14:06] LABS: ALBUMIN 3.9 g/dL (3.4-5.0); ALBUMIN/GLOBULIN RATIO 0.98; ANION GAP 16.6; BILIRUBIN,TOTAL 0.53 mg/dL (0.00-1.20); BUN/CREATININE RATIO 15.21; CALCIUM 9.9 mg/dL (8.2-10.2); CREATININE 1.38 mg/dL (0.60-1.30); FERRITIN 280.86 ng/mL (4.63-204.00); POTASSIUM 4.6 mmol/L (3.5-5.10); TOTAL PROTEIN 7.9 g/dL (6.4-8.2)
== END 2017-04-02 12:36 | disposition home or self-care (01) ==
LOC: LAB 12:35
PROVIDERS: ATTEND Emergency Medicine
DX: D64.9 Anemia, unspecified (principal); K52.9 Noninfective gastroenteritis and colitis, unspecified; R68.89 Other general symptoms and signs
CPT/HCPCS: 36415; 80053; 82607; 82728; 83540; 83550; 84466; 85025; 85045

== ENCOUNTER 2017-07-30 12:47 | Outpatient (CLI) ==
[2017-07-30 13:02] LABS: BASOPHILS % (AUTO) 0.5 % (0.0-3.0); EOSINOPHILS # (AUTO) 0.1 K/ul (0.0-0.7); HEMATOCRIT 43.1 % (37.0-47.0); IMMATURE GRANULOCYTE % (AUTO) 0.2 % (0.0-5.0); LYMPHOCYTES # (AUTO) 1.3 K/uL (0.60-3.4); LYMPHOCYTES % (AUTO) 18.9 (10.0-50.0); MEAN CORPUSCULAR HEMOGLOBIN 26.6 pg (27.0-31.0); MEAN CORPUSCULAR HGB CONC 34.8 (31.8-35.4); MEAN CORPUSCULAR VOLUME 76.6 fl (81.0-99.0); MONOCYTES # (AUTO) 0.6 K/uL (0.4-2.0); MONOCYTES % (AUTO) 9.1 (0-10); NEUTROPHILS # (AUTO) 4.6 K/ul (2.0-6.9); NEUTROPHILS % (AUTO) 69.3; PLATELET COUNT 305 10^3/uL (140-440); RED BLOOD COUNT 5.63 10^6/ul (4.20-5.40); WHITE BLOOD COUNT 6.61 K/ul (4.6-10.2)
[2017-07-30 13:15] LABS: ALBUMIN 3.8 g/dL (3.4-5.0); ALBUMIN/GLOBULIN RATIO 0.84; ANION GAP 17.2; BILIRUBIN,TOTAL 0.85 mg/dL (0.00-1.20); BUN/CREATININE RATIO 16.4; CALCIUM 9.8 mg/dL (8.2-10.2); CREATININE 1.28 mg/dL (0.60-1.30); POTASSIUM 4.2 mmol/L (3.5-5.10); TOTAL PROTEIN 8.3 g/dL (6.4-8.2)
== END 2017-07-30 12:48 | disposition home or self-care (01) ==
LOC: LAB 12:47
PROVIDERS: ATTEND Emergency Medicine
DX: R74.8 Abnormal levels of other serum enzymes (principal); F10.20 Alcohol dependence, uncomplicated
CPT/HCPCS: 36415; 80053; 85025

== ENCOUNTER 2017-10-29 11:17 | Outpatient (CLI) ==
--- NOTE | 2017-10-29 11:45 | DI ---
EXAM: LEFT HAND THREE VIEWS HISTORY: Numbness of the fifth digit. Pain. FINDINGS: Bones appear demineralized. There is no fracture or dislocation. No significant arthropa thy is suggested. Soft tissues are grossly unremarkable. IMPRESSION: No etiology for the patient's symptoms found.
== END 2017-10-29 11:18 | disposition home or self-care (01) ==
LOC: RAD 11:17
PROVIDERS: ATTEND Emergency Medicine
DX: M79.642 Pain in left hand (principal)

== ENCOUNTER 2017-11-05 16:26 | Outpatient (CLI) | END 2017-11-05 16:27 | disposition home or self-care (01) | LOC: LAB 16:26 | PROVIDERS: ATTEND Emergency Medicine | DX: E78.5 Hyperlipidemia, unspecified (principal); R74.8 Abnormal levels of other serum enzymes | CPT/HCPCS: 36415; 80053; 80061 ==

== ENCOUNTER 2018-02-27 12:23 | Outpatient (CLI) | END 2018-02-27 12:24 | disposition home or self-care (01) | LOC: RHC-LAB 12:23 | PROVIDERS: ATTEND Emergency Medicine | DX: R74.8 Abnormal levels of other serum enzymes (principal); F10.20 Alcohol dependence, uncomplicated; D64.9 Anemia, unspecified; E78.5 Hyperlipidemia, unspecified; K21.9 Gastro-esophageal reflux disease without esophagitis | CPT/HCPCS: 36415; 80053; 80061; 84443; 85025 ==

== ENCOUNTER 2018-04-24 11:16 | Outpatient (CLI) | END 2018-04-24 11:17 | disposition home or self-care (01) | LOC: RHC-LAB 11:16 | PROVIDERS: ATTEND Emergency Medicine | DX: R74.8 Abnormal levels of other serum enzymes (principal); K21.9 Gastro-esophageal reflux disease without esophagitis | CPT/HCPCS: 36415; 80053 ==